=== PATIENT | female | born 1990 | race Caucasian/White ===

== ENCOUNTER 2019-12-13 15:30 | Emergency (ER) | payer MEDICAID ==
[~2019-12-13] VITALS: Ht 157.5 cm; Wt 61.2 kg
[2019-12-13 15:37] VITALS: BP 127/82; Ht 157.5 cm; Wt 61.2 kg
== END 2019-12-13 16:13 | disposition home or self-care (01) ==
LOC: ED 15:30
DX: O99.513 Diseases of the respiratory system complicating pregnancy, third trimester (principal); J06.9 Acute upper respiratory infection, unspecified; Z3A.00 Weeks of gestation of pregnancy not specified; Z88.8 Allergy status to other drugs, medicaments and biological substances; Z88.0 Allergy status to penicillin